=== PATIENT | male | born 1955 | race Two or more races ===

== ENCOUNTER 2021-11-27 13:19 | Emergency (ER) | payer SELFPAY ==
[~2021-11-27] VITALS: Ht 175.3 cm; Wt 77.3 kg
[2021-11-27 16:08] VITALS: BP 110/75
[2021-11-27] MEDS ORDERED: ACET-1080 PO (16:22)
[2021-11-27] MEDS ORDERED: ACYC-166 PO (16:22)
== END 2021-11-27 16:32 | disposition home or self-care (01) ==
LOC: ER 13:19
DX: B02.9 Zoster without complications (principal)